=== PATIENT | female | born 1995 | race Hispanic/Latino ===

== ENCOUNTER 2018-01-21 13:02 | Observation (INO) | payer MEDICAID, OTHER ==
[~2018-01-21] VITALS: Ht 175.3 cm; Wt 118.8 kg
[2018-01-21] MEDS ORDERED: OXYTOCIN-LR 20 UNITS/1000 ML 1,000 ML IV SCH (15:15)
[2018-01-21] MEDS ORDERED: DINOPROSTONE 10 MG VAGINAL SUPP VG SCH (15:15)
[2018-01-21 16:00] LABS: HEMATOCRIT 38.6 % (36-48); MEAN CORPUSCULAR HEMOGLOBIN 30.6 pg (27.0-33.0); MEAN CORPUSCULAR HGB CONC 34.1 g/dL (32.0-36.0); MEAN CORPUSCULAR VOLUME 89.7 fL (79-99); NUCLEATED RED BLOOD CELLS 0.1 % (0.0-0.19); PLATELET COUNT (AUTO) 181 K/uL (130-400); RED BLOOD CELL COUNT(AUTO) 4.31 MIL/uL (4.00-5.50); RED CELL DISTRIBUTION WIDTH 14.7 % (11.0-15.5); WHITE BLOOD COUNT (AUTO) 7.2 K/uL (4.8-10.8)
[2018-01-21 16:28] LABS: APPEARANCE,URINE Clear (CLEAR); BILIRUBIN,URINE Negative (NEGATIVE); COLOR,URINE Yellow (YELLOW); GLUCOSE, URINE (UA) Negative (NEGATIVE); KETONES,URINE Negative (NEGATIVE); LEUKOCYTE ESTERASE ,URINE Large (NEGATIVE); NITRATE,URINE Negative (NEGATIVE); OCCULT BLOOD,URINE Negative (NEGATIVE); PROTEIN,URINE Negative (NEGATIVE); UROBILINOGEN,URINE 0.2 mg/dL (0.2-1.0)
[2018-01-21 16:42] LABS: RBC,URINE 0-1 /HPF (0-1)
[2018-01-21 16:43] LABS: BACTERIA,URINE Few /HPF (None Seen)
[2018-01-21 16:44] LABS: SQUAMOUS EPITHELIAL CELL,UR Few /HPF (0-2)
[2018-01-21 16:45] LABS: MUCUS,URINE Rare LPF (None Seen)
[2018-01-21 20:18] LABS: AMPHET/METH SCREEN,URINE NEGATIVE (NEGATIVE); BARBITURATE SCREEN, URINE NEGATIVE (NEGATIVE); BENZODIAZEPINES SCREEN,URINE NEGATIVE (NEGATIVE); CANNABINOID SCREEN,URINE NEGATIVE (NEGATIVE); COCAINE SCREEN,URINE NEGATIVE (NEGATIVE); OPIATE SCREEN,URINE NEGATIVE (NEGATIVE); PHENCYCLIDINE SCREEN,URINE NEGATIVE (NEGATIVE)
[2018-01-21] MEDS: LACTATED RINGERS 1000ML 1,000 ML IV PRN (21:41)
[2018-01-22] MEDS: LACTATED RINGERS 1000ML 1,000 ML IV PRN (01:25)
[2018-01-22] MEDS ORDERED: OXYTOCIN 10 USP UNITS/ML ONE (02:29)
[2018-01-22] MEDS ORDERED: LACTATED RINGERS 1000ML 1,000 ML IV ONE (02:29)
[2018-01-22] MEDS ORDERED: AMMONIA 1 EA AMP IH ONE (03:17)
[2018-01-23 08:20] LABS: HEPATITIS Bs ANTIGEN SCREEN P Negative (Negative)
== END 2018-01-22 09:47 | disposition home or self-care (01) ==
LOC: INTOOBSV 13:02 → LDH 13:02
PROVIDERS: ADMIT Obstetrics & Gynecology; ATTEND Obstetrics & Gynecology
DX: O99.89 Other specified diseases and conditions complicating pregnancy, childbirth and the puerperium (principal); M54.9 Dorsalgia, unspecified; Z3A.39 39 weeks gestation of pregnancy
CPT/HCPCS: 36415; 76805; 80305; 81001; 85027; 86592; 86850; 86900; 86901; 87340; 96365; 96366; G0378 ×15; J2590; J7120 ×4; J3490

== ENCOUNTER 2018-01-28 10:19 | Inpatient (IN) | payer OTHER ==
[~2018-01-28] VITALS: Ht 175.3 cm; Wt 118.8 kg
[2018-01-28] MEDS ORDERED: OXYTOCIN-LR 20 UNITS/1000 ML 1,000 ML IV SCH ×2 (13:15→13:45)
[2018-01-28] MEDS ORDERED: DINOPROSTONE 10 MG VAGINAL SUPP VG SCH (13:15)
[2018-01-28 14:04] LABS: HEMATOCRIT 36.8 % (36-48); MEAN CORPUSCULAR HEMOGLOBIN 30.4 pg (27.0-33.0); MEAN CORPUSCULAR VOLUME 89.5 fL (79-99); PLATELET COUNT (AUTO) 142 K/uL (130-400); RED BLOOD CELL COUNT(AUTO) 4.12 MIL/uL (4.00-5.50); RED CELL DISTRIBUTION WIDTH 14.9 % (11.0-15.5); WHITE BLOOD COUNT (AUTO) 8.2 K/uL (4.8-10.8)
[2018-01-28 14:11] LABS: APPEARANCE,URINE Clear (CLEAR); BILIRUBIN,URINE Negative (NEGATIVE); COLOR,URINE Yellow (YELLOW); GLUCOSE, URINE (UA) Negative (NEGATIVE); KETONES,URINE Trace mg/dL (NEGATIVE); LEUKOCYTE ESTERASE ,URINE Negative (NEGATIVE); NITRATE,URINE Negative (NEGATIVE); OCCULT BLOOD,URINE Negative (NEGATIVE); PH,URINE 6.5 (5.0-8.0); PROTEIN,URINE Negative (NEGATIVE)
[2018-01-28 14:23] LABS: BACTERIA,URINE Few /HPF (None Seen); RBC,URINE 0-1 /HPF (0-1); SQUAMOUS EPITHELIAL CELL,UR 0-2 /HPF (0-2); WBC,URINE 0-1 /HPF (0-1)
[2018-01-28 19:30] VITALS: BP 120/78
[2018-01-28] MEDS: LACTATED RINGERS 1000ML 1,000 ML IV PRN (20:00)
[2018-01-29] MEDS ORDERED: LACTATED RINGERS 1000ML 1,000 ML IV ONE (01:36)
[2018-01-29] MEDS ORDERED: OXYTOCIN 10 USP UNITS/ML ONE ×2 (01:37→17:06)
[2018-01-29] MEDS ORDERED: PROMETHAZINE HCL 25 MG/ML 1ML AMPULE IM ONE (02:09)
[2018-01-29] MEDS ORDERED: MEPERIDINE-PF 50 MG/ML SYG ONE (02:10)
[2018-01-29] MEDS ORDERED: PROMETHAZINE HCL 25 MG/ML 1ML AMPULE IM PRN ×3 (02:15→23:45)
[2018-01-29] MEDS ORDERED: MEPERIDINE-PF 50 MG/ML SYG IVP PRN (02:15)
[2018-01-29] MEDS ORDERED: OXYTOCIN 10 USP UNITS/ML 20 UNIT in LACTATED RINGERS 1000ML 1,000 ML IV SCH (03:00)
[2018-01-29 08:18] LABS: HEPATITIS Bs ANTIGEN SCREEN P Negative (Negative)
[2018-01-29] MEDS ORDERED: CEFAZOLIN SODIUM 1 GM VIAL IVP PRN (13:15)
[2018-01-29] MEDS ORDERED: SENSORCAINE/DEXT/PF 0.75% 2ML AMP IJ ONE (13:20)
[2018-01-29] MEDS ORDERED: CEFAZOLIN SODIUM 1 GM VIAL ONE (13:21)
[2018-01-29] MEDS: AMPICILLIN 2GM+NS 100ML 100 ML IV SCH (16:15)
[2018-01-29] MEDS ORDERED: AMPICILLIN 2GM+NS 100ML 100 ML IV ONE (16:28)
[2018-01-29] MEDS ORDERED: DURAMORPH PF1 MG/ML 10ML AMP IV ONE (17:06)
[2018-01-29] MEDS ORDERED: PHENYLEPHRINE HCL 10 MG/ML 1ML VIAL IV ONE (17:19)
[2018-01-29] MEDS ORDERED: CEFAZOLIN SODIUM 1 GM VIAL IVP ONE (17:19)
[2018-01-29] MEDS ORDERED: KETOROLAC TROMETHAMINE 30MG/ML ONE (17:46)
[2018-01-29] MEDS ORDERED: GLYCOPYRROLATE 1 MG/5 ML SYRINGE ONE (17:59)
[2018-01-29] MEDS ORDERED: OXYTOCIN-LR 20 UNITS/1000 ML 1,000 ML IV PRN (18:48)
[2018-01-29] MEDS ORDERED: SODIUM CHLORIDE 0.9% 10 ML VIAL IVP PRN (19:00)
[2018-01-29] MEDS ORDERED: MEPERIDINE-PF 75 MG/ML SYG IM PRN (19:00)
[2018-01-29] MEDS ORDERED: DEXTROSE 5 %-0.45 % NACL 1,000 ML IV PRN (19:00)
[2018-01-29] MEDS ORDERED: MORPHINE SULFATE 2 MG/ML 1ML SYG ONE (20:28)
[2018-01-29] MEDS ORDERED: ONDANSETRON HCL 4 MG/2 ML VIAL ONE (21:33)
[2018-01-29 23:35] VITALS: BP 116/51
[2018-01-29] MEDS ORDERED: ONDANSETRON HCL MDV 20ML 2 MG/ML VIAL IVP PRN (23:45)
[2018-01-29] MEDS ORDERED: DiphenhydrAMINE HCL 50 MG/ML VIAL IV PRN (23:45)
[2018-01-29] MEDS ORDERED: METOCLOPRAMIDE 10 MG/2 ML VIAL IVP PRN (23:45)
[2018-01-29] MEDS ORDERED: MORPHINE SULFATE 4 MG/1ML SYG IVP PRN (23:45)
[2018-01-29] MEDS ORDERED: HYDROCODONE/ACETAMINOPHEN 5/325 MG TAB PO PRN (23:45)
[2018-01-30] MEDS ORDERED: OXYTOCIN 10 USP UNITS/ML ONE (00:05)
[2018-01-30] MEDS ORDERED: PREN1TAB80 PO (00:13)
[2018-01-30] MEDS: LACTATED RINGERS 1000ML 1,000 ML IV PRN (00:20)
[2018-01-30] MEDS ORDERED: METOCLOPRAMIDE 10 MG/2 ML VIAL ONE (00:46)
[2018-01-30 03:47] VITALS: BP 116/57
[2018-01-30 05:27] LABS: HEMATOCRIT 30.6 % (36-48); MEAN CORPUSCULAR HEMOGLOBIN 30.6 pg (27.0-33.0); MEAN CORPUSCULAR HGB CONC 34.2 g/dL (32.0-36.0); MEAN CORPUSCULAR VOLUME 89.3 fL (79-99); PLATELET COUNT (AUTO) 132 K/uL (130-400); RED BLOOD CELL COUNT(AUTO) 3.43 MIL/uL (4.00-5.50); RED CELL DISTRIBUTION WIDTH 14.6 % (11.0-15.5); WHITE BLOOD COUNT (AUTO) 8.6 K/uL (4.8-10.8)
[2018-01-30 07:24] VITALS: BP 124/54
[2018-01-30] MEDS ORDERED: ACETAMINOPHEN EXTRA STRENGTH 500 MG TABLET PO PRN (08:15)
[2018-01-30] MEDS ORDERED: BISACODYL 10 MG SUPP.RECT RC PRN (08:15)
[2018-01-30] MEDS ORDERED: LANOLIN 30GM OINTMENT TP PRN (08:15)
[2018-01-30] MEDS: DOCUSATE SODIUM 100 MG CAP PO SCH ×2 (09:19→21:39)
[2018-01-30] MEDS: IBUPROFEN 600 MG TABLET PO PRN ×2 (09:19→18:12)
[2018-01-30] MEDS: SIMETHICONE 80 MG TAB.CHEW PO PRN ×4 (09:19→21:39)
[2018-01-30 11:11] VITALS: BP 132/70
[2018-01-30] MEDS: ACETAMINOPHEN-CODEINE 300/30MG TAB PO PRN ×3 (11:38→23:51)
[2018-01-30 15:41] VITALS: BP 128/60
[2018-01-30 19:53] VITALS: BP 109/60
[2018-01-31 00:04] VITALS: BP 120/73
[2018-01-31 04:04] VITALS: BP 119/75
[2018-01-31] MEDS: IBUPROFEN 600 MG TABLET PO PRN ×2 (04:09→11:36)
[2018-01-31] MEDS: AMPICILLIN 2GM+NS 100ML 100 ML IV SCH (04:15)
[2018-01-31 07:09] VITALS: BP 121/71
[2018-01-31] MEDS: ACETAMINOPHEN-CODEINE 300/30MG TAB PO PRN (07:33)
[2018-01-31] MEDS: SIMETHICONE 80 MG TAB.CHEW PO PRN (09:17)
[2018-01-31] MEDS: DOCUSATE SODIUM 100 MG CAP PO SCH (09:17)
[2018-01-31 11:08] VITALS: BP 117/69
== END 2018-01-31 13:30 | disposition home or self-care (01) | DRG 788 ==
LOC: LDH 13:02 → WSH 01-29 23:23
PROVIDERS: ADMIT Obstetrics & Gynecology; ATTEND Obstetrics & Gynecology
PROC: 10D00Z1 Extraction of Products of Conception, Low, Open Approach (ICD-10-PCS; principal; 2018-01-29 17:00)
DX: O77.9 Labor and delivery complicated by fetal stress, unspecified (principal); Z3A.40 40 weeks gestation of pregnancy; Z37.0 Single live birth
CPT/HCPCS: 36415; 59510; 81001; 85027; 86592; 86850; 86900; 86901; 87340; A4344; A4606; J0290; J0690; J1885; J2175; J2274; J2370; J2405; J2550; J2590; J2765; J3490; J7120